=== PATIENT | male | born 2005 | race Caucasian/White ===

== ENCOUNTER 2024-02-06 06:34 | Emergency (ER) | payer MEDICAID, SELFPAY ==
--- NOTE | 2024-02-06 06:34 | XRR_ITS ---
PROCEDURE INFORMATION: Exam: XR Chest Exam date and time: 02/06/2024 6:52 AM Age: 18 years old Clinical indication: Cough and shortness of breath; Additional info: Dyspnea/cough TECHNIQUE: Imaging protocol: Radiologic exam of the chest. Views: 1 view. COMPARISON: No relevant prior studies available. FINDINGS: Lungs: Unremarkable. No consolidation. Pleural spaces: Unremarkable. No pleural effusion. No pneumothorax. Heart/Mediastinum: Unremarkable. No cardiomegaly. Bones/joints: Unremarkable. XR/XR chest 1V portable [id number] IMPRESSION: No acute findings.
[2024-02-06 06:35] VITALS: BP 98/69; PULSE 121; RESP 18; TEMP 37.6; O2SAT 100; BMI 17.4
--- NOTE | 2024-02-06 06:46 | ED_ITS ---
HPI - SOB/Dyspnea 2 General: Chief Complaint: Shortness of Breath/Dyspnea Stated Complaint: SOB Time Seen by Provider: 02/06/24 06:34 Source: patient Mode of arrival: ambulatory History of Present Illness: HPI Narrative: 18-year-old male presents to the emergen cy room with complaints of shortness of breath. He has a history of asthma he has been out of his medications for the last couple of months. States where he lives there is some mold he thinks it has exacerbated things. He has been wheezing and short of breath nonproductive cough denies fever. No hemoptysis. MD elicited complaint: shortness of breath and cough Pertinent past history: asthma Onset (ago): day(s) Severity: mild Exacerbating factors: exertion and coughing Relieving factors: bronchodilators Known history of: COPD Associated symptoms: Deny abdominal pain, chest congestion, chest pain, cough, diaphoresis, dizziness, extremity pain, fever(s), hemoptysis, lightheadedness, myalgias, nausea, orthopnea, palpitations, paresthesias, polydipsia, polyuria, rash, sense of impending doom, syncope or vomiting Treatment prior to arrival: oxygen and bronchodilator Review of Systems 2 Const: Denies: fever(s), chills or diaphoresis Card: Denies: chest pain, palpitations, lightheadedness, syncope or orthopnea Resp: Reports: dyspnea, non-productive cough and wheezing; Denies: hemoptysis or chest congestion GI: Denies: abdominal pain, nausea or vomiting : Denies: dysuria, urinary frequency or urinary urgency Musc: Denies: neck pain, back pain or extremity pain Skin/Breast: Denies: rash Neuro: Denies: dizziness Endo: Denies: polyuria or polydipsia Physical Exam 2 Const: GENERAL APPEARANCE: cooperative and comfortable O RIENTATION/CONSCIOUSNESS: Yes awake, Yes oriented to person, Yes oriented to place and Yes oriented to time HENMT: COMMON NORMALS: normocephalic, atraumatic and hearing grossly normal bilaterally HEAD & SCALP: normocephalic and atraumatic Resp: COMMON NORMALS: normal respiratory effort, No retractions and No use of accessory muscles AUSCULTATION: wheezes Cardio: COMMON NORMALS: regular rate, regular rhythm and No murmurs present (Cardio) RATE: regular rate RHYTHM: regular rhythm GI: COMMON NORMALS: Soft to palpation and No hepatosplenomegaly present A USCULTATION: Yes normoactive bowel sounds PALPATION: Yes Soft to palpation, No Tenderness to palpation present (GI), No Guarding due to palpation present (GI) and Yes No hepatosplenomegaly present Extremity: COMMON NORMALS: normal to inspection, capillary refill normal, no clubbing, cyanosis or edema, no calf tenderness and no pedal edema Neuro: SENSORIUM/ORIENTATION: Yes oriented to person, Yes oriented to place and Yes oriented to time Skin: COMMON NORMALS: no rashes or lesions noted GENERAL SKIN EXAM: no rashes or lesions noted Course 2 Vital Signs: Vital signs: Vital Signs Temperature 99.6 F 02/06/24 06:35 Pulse Rate 109 H 02/06/24 07:22 Respiratory Rate 16 02/06/24 07:22 Blood Pressure 137/77 02/06/24 06:51 Pulse Oximetry 96 02/06/24 07:22 Oxygen Delivery Me thod Room Air 02/06/24 07:22 MDM - SOB/Dyspnea Medical Decision Making Improved with albuterol and DuoNeb treatments. Also given dexamethasone. No signs of infiltrates no leukocytosis. Repeat exam wheezing has resolved. Will discharge home with steroid taper. Also start him on fluticasone for maintenance and albuterol as needed. Refer to case management to establish to a PCP. Medical Records I reviewed the patient's medical records. Lab Data I reviewed the patient's lab results. 02/06/24 06:44 02/06/24 06:44 Labs/Radiology: Laboratory Results WBC 3.86 10^3/uL (4.5-13.0) L 02/06/24 06:44 RBC 4.87 10^6/uL (3.85-5.65) 02/06/24 06:44 Hgb 15.20 g/dL (13.2-15.6) 02/06/24 06:44 Hct 42.2 % (37-53) 02/06/24 06:44 MCV 86.7 fl (82-101) 02/06/24 06:44 MCH 31.2 pg (27-33) 02/06/24 06:44 MCHC 36.0 g/dL (30-55) 02/06/24 06:44 RDW 12.6 % (12.1-15.1) 02/06/24 06:44 Plt Count 153 10^3/cmm (157-399) L 02/06/24 06:44 MPV 11.7 fL (7.4-10.4) H 02/06/24 06:44 Neut % (Auto) 54.4 % 02/06/24 06:44 Lymph % (Auto) 30.3 % 02/06/24 06:44 [place] % (Auto) 11.7 % 02/06/24 06:44 Eos % (Auto) 2.8 % 02/06/24 06:44 Baso % (Auto) 0.5 % 02/06/24 06:44 Neut # (Auto) 2.10 10^3/uL (1.8-8.0) 02/06/24 06:44 Lymph # (Auto) 1.2 10^3/uL (1.5-6.5) L 02/06/24 06:44 [place] # (Auto) 0.5 10^3/uL (0.2-0.9) 02/06/24 06:44 Eos # (Auto) 0.1 10^3/uL (0.0-0.8) 02/06/24 06:44 Baso # (Auto) 0.0 10^3/uL (0.0-0.1) 02/06/24 06:44 Nucleated RBC % (auto) 0 % 02/06/24 06:44 Nucleated RBCs # 0.0 /100WBC 02/06/24 06:44 Sodium 136 mmol/L (136-145) 02/06/24 06:44 Potassium 3.7 mmol/L (3.5-5.1) 02/06/24 06:44 Chloride 101 mmol/L (98-107) 02/06/24 06:44 Carbon Dioxide 25 mmol/L (22-29) 02/06/24 06:44 Anion Gap 13.7 (5-19) 02/06/24 06:44 BUN 11 mg/dL (6-20) 02/06/24 06:44 Creatinine 0.7 mg/dL (0.7-1.2) 02/06/24 06:44 GFR Calculation 143.8 mL/min (90-130) H 02/06/24 06:44 Glucose 123 mg/dL (65-115) H 02/06/24 06:44 Calculated Osmolality 283 mOsm/kg (285-295) L 02/06/24 06:44 Calcium 8.2 mg/dL (8.5-10.5) L 02/06/24 06:44 Total Bilirubin 0.7 mg/dL (0.15-1.2) 02/06/24 06:44 AST 15 U/L (0-40) 02/06/24 06:44 ALT 11 U/L (0-41) 02/06/24 06:44 Alkaline Phosphatase 106 U/L (40-130) 02/06/24 06:44 Total Protein 7.9 g/dL (6.6-8.7) 02/06/24 06:44 Albumin 4.4 g/dL (3.5-5.2) 02/06/24 06:44 Globulin 3.5 g/dL (1.3-4.6) 02/06/24 06:44 All radiology interpretation(s) finalized by discharge EKG Data EKG 1: EKG Interpretation Date: 02/06/24 EKG interpretation time: 07:05 Other EKG Comments: Sinus tachycardia with LVH rate of [address] elevation or depression Discharge Plan Discharge Patient Disposition: Home Clinical Impression: Asthma with exacerbation Condition: Stable Prescriptions: New albuterol sulfate 90 mcg/actuation HFA aerosol inhaler 2 inh INHALATION Q4H PRN (Reason: shortness of breath or wheezing) Qty: 18 0RF prednisone 20 mg tablet 20 mg PO TID Qty: 15 0RF Rx Instructions: 1 p.o. 3 times daily x3 days, 1 p.o. twice daily x2 days, 1 p.o. daily x2 days fluticasone propionate 110 mcg/actuation HFA aerosol inhaler 2 inh inhalation BID Qty: 12 0RF No Action fexofenadine [Nalini Allergy] 60 mg tablet 60 mg PO Q12H PRN (Reason: allergies) ibuprofen 200 mg capsule 200 mg PO Q6H PRN (Reason: Pain) Discharge Orders: Discharge ED (Routine); Ordered 02/06/24 Ordered By: Robby Macdonald Discharge Activity: Increase activity as tolerated Patient Instructions: Asthma Exacerbation - Adult, Asthma (ED), Opioid Safety, Pain Management Activity Restrictions/Additional Instructions: Thank you for choosing [facility] for your healthcare needs today. Please realize this is an emergency room and that we are providing you with a medical screening exam and this may not be complete and all inclusive of all the testing and or work up that you may need to determine your ailment or severity of your illness. It is very important that you follow up as instructed or that you return to the Emergency Department should you have concerns or if your condition changes or worsens in any way. You were seen today for an exacerbation of your asthma. You did respond to the albuterol treatments given.. Your chest x-ray does not show any evidence of pneumonia. Recommend you start fluticasone 2 inhalations twice a day and albuterol to use as needed. Coding Level of Care Code ED Stave Cutting Supervisor for Dru Gramajo
[2024-02-06] MEDS: dexamethasone 10 mg/mL INJ IM (06:48)
[2024-02-06 06:49] LABS: Basophils % 0.5 %; Eosinophils # 0.1 10^3/uL (0.0-0.8); Eosinophils % 2.8 %; Hematocrit 42.2 % (37-53); Lymphocytes # 1.2 10^3/uL (1.5-6.5); Lymphocytes % 30.3 %; Mean Corpuscular Hemoglobin 31.2 pg (27-33); Mean Corpuscular Volume 86.7 fl (82-101); Mean Platelet Volume 11.7 fL (7.4-10.4); Monocytes # 0.5 10^3/uL (0.2-0.9); Monocytes % 11.7 %; Neutrophils % 54.4 %; Nucleated Red Blood Cells % 0 %; Platelet Count 153 10^3/cmm (157-399); Red Blood Count 4.87 10^6/uL (3.85-5.65); Red Cell Distribution Width 12.6 % (12.1-15.1); White Blood Count 3.86 10^3/uL (4.5-13.0)
[2024-02-06] MEDS: sodium chloride 0.9% 1,000 ML 999 ML IV (06:49)
[2024-02-06 06:51] VITALS: BP 137/77; PULSE 110; RESP 18; O2SAT 96
--- NOTE | 2024-02-06 07:04 | ECG_ITS ---
[facility] Test Date: 2024-02-06 Pat Name: Derick Mitchell Department: Room: Gender: Male Certified Phlebotomy Technician: : 2005 Requested By: Robby Ricketts Order Number: [id number] Henri MD: Ruthy Schultz M.D. Measurements Intervals [place] Rate: 104 P: 76 MA: 124 QRS: 63 QRSD: 86 T: 57 QT: 319 QTc: 421 Interpretive Statements SINUS TACHYCARDIA MODERATE VOLTAGE CRITERIA FOR LVH, CONSIDER NORMAL VARIANT [MEETS CRITERIA IN ONE OF: R(aVL), S(V1), R(V5), R(V5/V6)+S(V1)] ABNORMAL RHYTHM ECG No previous ECG available for comparison Electronically Signed On 02-06-2024 8:14:41 CDT by Ruthy Schultz M.D. [email or web address]
[2024-02-06 07:09] LABS: Alanine Aminotransferase 11 U/L (0-41); Albumin Level 4.4 g/dL (3.5-5.2); Alkaline Phosphatase 106 U/L (40-130); Anion Gap 13.7 (5-19); Aspartate Amino Transferase 15 U/L (0-40); Blood Urea Nitrogen 11 mg/dL (6-20); Calcium 8.2 mg/dL (8.5-10.5); Carbon Dioxide 25 mmol/L (22-29); Chloride 101 mmol/L (98-107); Creatinine Clr Calc Pharmacy 124.1976; Globulin 3.5 g/dL (1.3-4.6); Glomerular Filtration Rate 143.8 mL/min (90-130); Glucose 123 mg/dL (65-115); Osmolality Calculated 283 mOsm/kg (285-295); Potassium 3.7 mmol/L (3.5-5.1); Sodium 136 mmol/L (136-145); Total Bilirubin 0.7 mg/dL (0.15-1.2); Total Protein 7.9 g/dL (6.6-8.7)
[2024-02-06 07:22] VITALS: PULSE 109; RESP 16; O2SAT 96
[2024-02-06] MEDS: ipratropium-albuterol 3 mL Neb INHALATION (07:22)
--- NOTE | 2024-02-19 07:02 | DCPLANNER ---
sent message to establish PCP
== END 2024-02-06 07:39 | disposition home or self-care (01) ==
PROVIDERS: Emergency Provider Family Medicine
DX: J45.901 Unspecified asthma with (acute) exacerbation (principal)
CPT/HCPCS: 71045; 80053; 85025; 93005; 94640; 99285; J1100; J7030

== ENCOUNTER 2025-03-26 22:05 | Emergency (ER) | payer MEDICAID, SELFPAY ==
[2025-03-26 22:16] VITALS: BP 139/93; PULSE 72; RESP 16; TEMP 36.8; O2SAT 99; BMI 16.5
--- NOTE | 2025-03-26 22:23 | ECG_ITS ---
[facility] Test Date: 2025-03-26 Pat Name: Derick Mitchell Department: Room: Gender: Male City Engineer: : 2005 Requested By: Yeison Clements Order Number: [id number] Reading MD: Measurements Intervals [place] Rate: 54 P: 84 CT: 113 QRS: 80 QRSD: 84 T: 83 QT: 367 QTc: 350 Interpretive Statements SINUS BRADYCARDIA WITH SHORT CT INTERVAL VOLTAGE CRITERIA FOR LVH [MEETS CRITERIA IN ONE OF: R(aVL), S(V1), R(V5), R(V5/V6)+S(V1)] Compared to ECG 02/06/2024 07:04:[address] interval now present Sinus tachycardia no longer present [email or web address]
--- NOTE | 2025-03-26 23:56 | ED_ITS ---
HPI - Dizziness General: Chief Complaint: Dizziness Stated Complaint: Flea bites,Flea invastation CP Feverish Time Seen by Provider: 03/26/25 23:05 History of Present Illness: HPI Narrative: 19-year-old male he says that his house is infested with fleas. He is found multiple fleas on his person. He has multiple bites. He scratched them vigorously. He believes he has an infection where some of the bites are now. He is complaining of generalized itchiness, feeling feverish. Increased skin pain Related Data Home Medications ?Medication ?Instructions ?Recorded ?Confirmed fexofenadine 60 mg tablet (Nalini 60 mg PO Q12H PRN a llergies 03/09/23 02/06/24 Allergy) ibuprofen 200 mg capsule 200 mg PO Q6H PRN Pain 03/0902/06/24 Previous Rx's ?Medication ?Instructions ?Recorded albuterol sulfate 90 mcg/actuation 2 inh inhalation Q4 H PRN shortness 02/06/24 aerosol inhaler of breath or wheezing #18 gr ams fluticasone propionate 110 2 inh inhalation BID #12 gr ams 02/06/24 mcg/actuation HFA aerosol inhaler prednisone 20 mg tablet 20 mg PO TID #15 tabs diphenhydramine HCl 25 mg capsule 25 mg PO Q6H PRN itc swetha #30 caps 03/26/25 (Benadryl) doxycycline hyclate 100 mg tablet 100 mg PO BID 7 days #14 tabs 03/26/25 methylprednisolone 4 mg tablets in See Rx Instructions PO .COMPLEX 03/26/25 a dose pack (Medrol (William)) #21 ea Allergies Allergy/AdvReac Type Severity Reaction Status Date / Time No Known Allergies Allergy Unverified 03/09/23 18:31 Physical Exam Const: COMMON NORMALS: no acute distress GENERAL APPEARANCE: cooperative; not ill appearing and not frail appearing HENMT: COMMON NORMALS: normocephalic, atraumatic and Normal external nose present HEAD & SCALP: normocephalic and atraumatic FACE & SINUS: normal facial exam and face symmetric NOSE: Normal external nose present Eye: COMMON NORMALS: Equal, round and reactive pupils present and EOMs intact bilaterally PUPIL: Yes Equal, round and reactive pupils present Neck/C-Spine: GENERAL: Yes trachea midline Chest: CHEST: Yes Symmetrical chest wall rise Resp: COMMON NORMALS: normal respiratory effort, No retractions, No use of accessory muscles and clear to auscultation bilaterally AUSCULTATION: clear to auscultation bilaterally Cardio: COMMON NORMALS: regular rate and regular rhythm RATE: regular rate RHYTHM: regular rhythm GI: COMMON NORMALS: Normal to inspection, nondistended, normoactive bowel sounds present Neuro: SARAH COMA SCALE: document GCS findings Sarah coma scale eye opening: Spontaneous Sarah coma scale verbal response: Orientated [place] coma scale motor response: Obey commands Sarah coma scale total score: 15 SENSORY EXAM: Yes extremities (intact) Skin: NARRATIVE SKIN EXAM: Multiple insect bites. Surrounding urticaria. Excoriations present. Mild cellulitis is present as well. Scalp and face are mostly spared. Back much less involved than chest. All extremities affected. Course Vital Signs: Vital signs: Vital Signs Temperature 98.3 F 03/26/25 22:16 Pulse Rate 72 03/26/25 22:16 Respiratory Rate 16 03/26/25 22:16 Blood Pressure 139/93 03/26/25 22:16 Pulse Oximetry 99 03/26/25 22:16 Oxygen Delivery Me thod Room Air 03/26/25 22:16 MDM - Dizziness Medical Decision Making Some cellulitis present. Urticaria are present. Multiple insect bites present. Treat with steroids, antibiotics. Advised he must get rid of flea infestation for continued improvement No radiology studies performed this visit Discharge Plan Discharge Patient Disposition: Home Clinical Impression: Insect bites of multiple sites, infected Condition: Stable Prescriptions: New methylprednisolone [Medrol (William)] 4 mg tablets,dose pack See Rx Instructions .ROUTE .COMPLEX Qty: 21 0RF Rx Instructions: orally per package directions doxycycline hyclate 100 mg tablet 100 mg PO BID 7 Days Qty: 14 0RF diphenhydramine HCl [Benadryl] 25 mg capsule 25 mg PO Q6H PRN (Reason: itching) Qty: 30 0RF No Action fexofenadine [Nalini Allergy] 60 mg tablet 60 mg PO Q12H PRN (Reason: allergies) ibuprofen 200 mg capsule 200 mg PO Q6H PRN (Reason: Pain) albuterol sulfate 90 mcg/actuation HFA aerosol inhaler 2 inh INHALATION Q4H PRN (Reason: shortness of breath or wheezing) Qty: 18 0RF prednisone 20 mg tablet 20 mg PO TID Qty: 15 0RF Rx Instructions: 1 p.o. 3 times daily x3 days, 1 p.o. twice daily x2 days, 1 p.o. daily x2 days fluticasone propionate 110 mcg/actuation HFA aerosol inhaler 2 inh inhalation BID Qty: 12 0RF Discharge Orders: Discharge ED (Routine); Ordered 03/26/25 Ordered By: Yeison Maxwell Patient Instructions: Cellulitis (ED), Insect Bite or Sting (ED), General Allergic Reaction (ED), Opioid Safety, Pain Management, Patient Portal & Yeni Instructions Activity Restrictions/Additional Instructions: Take Benadryl scheduled at least 3 times daily for the first 48 hours. Then you may take as needed. Other medications as directed. Return for worsening symptoms despite treatment. Be sure to take care of the insect infestation Print Language: Belarusian Coding Level of Care Code ED Spinning Operator for Dru Gramajo
== END 2025-03-27 00:09 | disposition home or self-care (01) ==
PROVIDERS: Emergency Provider Emergency Medicine
DX: R23.8 Other skin changes (principal)
CPT/HCPCS: 93005; 93010; 99283; J7512; J9999; Q0163